=== PATIENT | female | born 1970 | race Caucasian/White ===

== ENCOUNTER 2019-09-08 11:31 | Emergency (ER) | payer SELFPAY ==
--- NOTE | 2019-09-08 11:49 | ER Document Report ---
ED Medical Screen (RME) - General Chief Complaint: Blood Pressure Problem Stated Complaint: BLOOD PRESSURE ISSUE Time Seen by Provider: 09/08/19 11:40 Primary Care Provider: CHANO ROB MD [Primary Care Provider] - Follow up as needed Information source: Patient Notes: Patient states that she was at an urgent care to get a physical for disability claim. Patient states that her blood pressure was up and they advised her to come here. Patient denies any chest pain, shortness of breath, back pain, urinary problems or headache. Patient does report changes in her vision although states that these have been gradual. Patient reports a known history of hypertension with 2 previous strokes. Patient states she does not have money or insurance to get on blood pressure medication. I have greeted and performed a rapid initial assessment of this patient. A comprehensive ED assessment and evaluation of the patient, analysis of test results and completion of the medical decision making process will be conducted by additional ED providers. TRAVEL OUTSIDE OF THE [place] IN LAST 30 DAYS: No - Related Data Allergies/Adverse Reactions: Sulfa (Sulfonamide Antibiotics) Allergy (Unknown, Verified 11/13/13 16:26) Past Medical History - Social History Chew tobacco use (# tins/day): No Frequency of alcohol use: None Drug Abuse: None - Past Medical History Cardiac Medical History: Reports: Hx Hypertension Neurological Medical History: Reports: Hx Cerebrovascular Accident - Immunizations Immunizations up to date: Yes Physical Exam - Vital signs Vitals: Temp Pulse Resp BP Pulse Ox 98.4 F 86 16 209/114 H 100 09/08/19 11:39 09/08/19 11:39 09/08/19 11:39 09/08/19 11:39 09/08/19 11:39 - Neurological Neuro grossly intact: Yes Cognition: Normal [place] Coma Scale Eye Opening: Spontaneous Stephen Coma Scale Verbal: Oriented [place] Coma Scale Motor: Obeys Commands [place] Coma Scale Total: 15 Course - Vital Signs Vital signs: Temp Pulse Resp BP Pulse Ox 98.4 F 86 16 209/114 H 100 09/08/19 11:39 09/08/19 11:39 09/08/19 11:39 09/08/19 11:39 09/08/19 11:39 Doctor's Discharge - Discharge Referrals: CHANO ROB MD [Primary Care Provider] - Follow up as needed
[2019-09-08] MEDS ORDERED: CLONIDINE HCL 0.1 MG TABLET PO ONE (12:17)
--- NOTE | 2019-09-08 12:24 | ER Document Report ---
ED General - General Chief Complaint: Blood Pressure Problem Stated Complaint: BLOOD PRESSURE ISSUE Time Seen by Provider: 09/08/19 11:40 Primary Care Provider: CHANO ROB MD [ACTIVE STAFF] - Follow up as needed Mode of Arrival: Ambulatory Information source: Patient, Relative, [facility] Records Notes: 48-year-old female with hypertension, previous CVA presents via private vehicle after she attempted to be examined by her disability physician who found her blood pressure to be significantly elevated. Patient does admit that she has not been taking her blood pressure medication due to cost. She denies any headache, visual changes, nausea, vomiting, chest pain, shortness of breath, difficulty with urination. TRAVEL OUTSIDE OF THE [place] IN LAST 30 DAYS: No - HPI Onset: Just prior to arrival Quality of pain: No pain Severity: None Pain Level: Denies Associated symptoms: denies: Chest pain, Nonproductive cough, Productive cough, Headache, Leg swelling, Nausea, Vomiting, Shortness of breath, Sweating, Weakness Exacerbated by: Denies Relieved by: Denies Similar symptoms previously: Yes Recently seen / treated by doctor: No - Related Data Allergies/Adverse Reactions: Sulfa (Sulfonamide Antibiotics) Allergy (Unknown, Verified 11/13/13 16:26) Past Medical History - General Information source: Patient - Social History Smoking Status: Current Every Day Smoker Cigarette use (# per day): Yes - 10 Chew tobacco use (# tins/day): No Smoking Education Provided: Yes - Smoking cessation counseling was provided for 4 minutes at the bedside Frequency of alcohol use: None Drug Abuse: None Lives with: Family Family History: Reviewed & Not Pertinent Patient has suicidal ideation: No Patient has homicidal ideation: No - Past Medical History Cardiac Medical History: Reports: Hx Hypertension Neurological Medical History: Reports: Hx Cerebrovascular Accident - Immunizations Immunizations up to date: Yes Review of Systems - Review of Systems Notes: REVIEW OF SYSTEMS: CONSTITUTIONAL : Denies fever, chills, or sweats. Denies recent illness. Denies weight loss, recent hospitalizations. EENT: Denies visual changes, eye pain. Denies sore throat, oral lesions, difficulty swallowing. CARDIOVASCULAR: Denies chest pain. Denies palpitations. Denies lower extremity edema. RESPIRATORY: Denies cough. Denies shortness of breath, wheezing. GASTROINTESTINAL: Denies abdominal pain or distention. Denies nausea, vomiting, or diarrhea. Denies blood in vomitus, stools, or per rectum. Denies black, tarry stools. Denies constipation. GENITOURINARY: Denies difficulty urinating, painful urination, frequency, blood in urine, or vaginal discharge. MUSCULOSKELETAL: Denies back or neck pain or stiffness. Denies joint pain or swelling. SKIN: Denies rash, lesions or sores. HEMATOLOGIC : Denies easy bruising or bleeding. LYMPHATIC: Denies swollen glands. NEUROLOGICAL: Denies confusion or altered mental status. Denies loss of consciousness. Denies dizziness or lightheadedness. Denies headache. Denies weakness or paralysis. Denies problems difficulty with ambulation, slurred speech. Denies sensory loss, numbness, or tingling. Denies seizures. PSYCHIATRIC: Denies anxiety or stress. Denies depression, suicidal ideation, or homicidal ideation. Denies visual or auditory hallucinations. Physical Exam - Vital signs Vitals: Temp Pulse Resp BP Pulse Ox 98.4 F 86 16 209/114 H 100 09/08/19 11:39 09/08/19 11:39 09/08/19 11:39 09/08/19 11:39 09/08/19 11:39 - Notes Notes: PHYSICAL EXAMINATION: GENERAL: Well-appearing, well-nourished and in no acute distress. HEAD: Atraumatic, normocephalic. EYES: Pupils equal round and reactive to light, extraocular movements intact, conjunctiva are normal. ENT: Nares patent, oropharynx clear without exudates. Moist mucous membranes. NECK: Normal range of motion, supple without lymphadenopathy LUNGS: Breath sounds clear to auscultation bilaterally and equal. No wheezes rales or rhonchi. HEART: Regular rate and rhythm without murmurs ABDOMEN: Soft, nontender, nondistended abdomen. No guarding, no rebound. No masses appreciated. Female : deferred Musculoskeletal: Normal range of motion, no pitting or edema. No cyanosis. NEUROLOGICAL: Cranial nerves grossly intact. Normal speech, normal gait. Normal sensory, motor exams PSYCH: Normal mood, normal affect. SKIN: Warm, Dry, normal turgor, no rashes or lesions noted. Course - Re-evaluation Re-evalutation: Temp Pulse Resp BP Pulse Ox 98.4 F 86 16 209/114 H 100 09/08/19 11:39 09/08/19 11:39 09/08/19 11:39 09/08/19 11:39 09/08/19 11:39 Presentation of asymptomatic hypertension. Patient denies any symptoms concerning for SAH, dissection, SC, or encephalopaty. Alert, oriented, and de nies any symptoms at time of assessment. Normal neuro exam. Per [facility] policy guidelines, will therefore not obtain any labs or EKG at this time and will not initiate new BP treatment. I have discussed critical importance of follow up with PCP within 1 week and increased risk of devastating stroke, heart attack, respiratory distress, and other life threatening complications if blood pressure is not reduced appropriately. Diet and exercise habits also discussed. Patient will be discharged with return precautions and follow-up recommendations. I did show the patient the [employer] hemanth which shows that her metoprolol is only $4 at [facility]. Patient states that she is able to afford this. Patient was evaluated and treated as appropriate for the patient's presenting symptoms and complaint, with consideration of any critical or life threatening conditions that may be associated with their obtained history and exam as noted above. All results were discussed with patient and her who is at the bedside patient provided the opportunity to ask questions, and express concerns. Patient was educated on treatments based on their presumed diagnosis as noted above. At this time we will discharge the patient with return precautions and follow-up recommendations. Verbal discharge instructions given a the bedside. Medication warnings reviewed. Patient is in agreement with this plan and has ve rbalized understanding of return precautions. After careful consideration I feel that that patient can be safely discharged from the emergency department, they were advised to followup with a primary care physician in 2-3 days. Dictation on this chart was performed using voice recognition software and may result in unintended grammatical, spelling, syntax or errors. - Vital Signs Vital signs: Temp Pulse Resp BP Pulse Ox 98.4 F 86 16 209/114 H 100 09/08/19 11:39 09/08/19 11:39 09/08/19 11:39 09/08/19 11:39 09/08/19 11:39 Discharge - Discharge Clinical Impression: Asymptomatic hypertension, Noncompliance with medication regimen Condition: Good Disposition: HOME, SELF-CARE Instructions: High Blood Pressure ([facility]) Additional Instructions: Regarding Blood Pressure: Your blood pressure was noted to be greater than 120/80 at least once in the emergency room today. It is recommended that you follow-up with her primary care physician in the next week for repeat blood pressure check. The Centers for Medicare and Medicaid Services has specific recommendations regarding a person's blood pressure. There are several lifestyle modifications that are recommended in order to help lower your blood pressure. These include: Quitting smoking if you smoke. Reducing the amount of sodium in your diet. Getting regular exercise Limiting alcohol to no more than 2 drinks a day for men and one drink a day for women. Eating a healthy diet, including more fruits and vegetables, low fat dairy products, less saturated and total fat. Losing weight if you are overweight. FOLLOW-UP: Call your doctor's office and let them know your blood pressure was elevated and you were advised to get your blood pressure checked in the above time-line. If you are unable to get into your doctor's office in this time period, you can follow-up with a new physician (I have left the numbers below for a few primary care doctors affiliated with this [facility]) or return to the ER. PRIMARY CARE PHYSICIANS: Dr. Nancy Law [address], [place] [phone] Dr Benitez Address: [address] , [place] [address] Dr Barreto Address: [address] [place] [address] [place] [address] Prescriptions: Metoprolol Tartrate [Lopressor 25 mg Tablet] 25 mg PO DAILY #30 tab Forms: Elevated Blood Pressure Referrals: CHANO ROB MD [ACTIVE STAFF] - Follow up as needed
[2019-09-08 12:59] VITALS: BP 169/98
== END 2019-09-08 13:00 | disposition home or self-care (01) ==
LOC: ER 11:31
DX: I10 Essential (primary) hypertension (principal); Z91.14 Patient's other noncompliance with medication regimen; Z79.899 Other long term (current) drug therapy; F17.210 Nicotine dependence, cigarettes, uncomplicated
CPT/HCPCS: 99283; 99406

== ENCOUNTER → 2019-09-30 | Outpatient (CLI) | payer SELFPAY ==
[2019-09-30 19:41] LABS: APPEARANCE,URINE CLOUDY; BILIRUBIN,URINE NEGATIVE (NEGATIVE); COLOR,URINE YELLOW; GLUCOSE, URINE NEGATIVE (NEGATIVE); KETONES,URINE NEGATIVE (NEGATIVE); LEUKOCYTE ESTERASE,URINE MODERATE (NEGATIVE); NITRITE,URINE POSITIVE (NEGATIVE); PROTEIN,URINE NEGATIVE (NEGATIVE); UROBILINOGEN,URINE NEGATIVE mg/dL (<2.0)
== END ==
LOC: LAB 19:28
PROVIDERS: ATTEND Nurse Practitioner Family
DX: R10.9 Unspecified abdominal pain (principal)
CPT/HCPCS: 81001; 87086; 87088; 87186

== ENCOUNTER 2019-10-19 01:23 | Emergency (ER) | payer SELFPAY ==
[2019-10-19 02:05] LABS: ABSOLUTE BASOPHILS # (AUTO) 0.1 10^3/uL (0.0-0.2); ABSOLUTE EOSINOPHILS # (AUTO) 0.1 10^3/uL (0.0-0.6); ABSOLUTE LYMPHOCYTES (AUTO) 1.9 10^3/uL (0.5-4.7); ABSOLUTE MONOCYTES (AUTO) 1.2 10^3/uL (0.1-1.4); ABSOLUTE NEUT (AUTO) 16.1 10^3/uL (1.7-8.2); BASOPHILS % (AUTO) 0.4 % (0-2); EOSINOPHILS % (AUTO) 0.3 % (0-6); HEMATOCRIT 46.3 % (36.0-47.0); HEMOGLOBIN 15.7 g/dL (12.0-15.5); LYMPHOCYTES % (AUTO) 9.7 % (13-45); MEAN CORPUSCULAR HEMOGLOBIN 31.9 pg (27.0-33.4); MEAN CORPUSCULAR HGB CONC 33.9 g/dL (32.0-36.0); MEAN CORPUSCULAR VOLUME 94 fl (80-97); MONOCYTES % (AUTO) 6.1 % (3-13); PLATELET COUNT 225 10^3/uL (150-450); RED BLOOD COUNT 4.93 10^6/uL (3.72-5.28); RED CELL DISTRIBUTION WIDTH 13.7 % (11.5-14.0); SEGMENTED NEUTROPHILS % (AUTO) 83.5 % (42-78); TOTAL CELLS COUNTED % (AUTO) 100 %; WHITE BLOOD COUNT 19.3 10^3/uL (4.0-10.5)
[2019-10-19 02:33] LABS: ANION GAP 12 (5-19); BLOOD UREA NITROGEN 10 mg/dL (7-20); CALCIUM 9.9 mg/dL (8.4-10.2); CARBON DIOXIDE 22 mmol/L (22-30); CHLORIDE 109 mmol/L (98-107); GLUCOSE 123 mg/dL (75-110); POTASSIUM 4.2 mmol/L (3.6-5.0)
[2019-10-19] MEDS ORDERED: MORPHINE SULFATE 10 MG/ML INJ IV ONE (05:12)
[2019-10-19] MEDS ORDERED: ONDANSETRON HCL INJ/PF 4 MG/2 ML SDV IV ONE (05:12)
[2019-10-19] MEDS ORDERED: NORMAL SALINE 1000 ML 1,000 ML IV ONE (05:12)
--- NOTE | 2019-10-19 05:14 | ER Document Report ---
ED GI/ - General TRAVEL OUTSIDE OF THE [place] IN LAST 30 DAYS: No - Related Data Home Medications: asa 325. aricept. unk name BP med daily <ALLY ARAUJO - Last Filed: 10/19/19 07:56> <DANIELA GRACIA - Last Filed: 10/19/19 19:22> - General Chief Complaint: Flank Pain Stated Complaint: LEFT SIDE PAIN/VOMITING Time Seen by Provider: 10/19/19 05:03 Notes: Patient is a 48-year-old female that comes to the emergency department for chief complaint of severe pain that started suddenly at 9:30 PM, she states pain is in her left mid to lower abdomen and radiates to her back. She states the pain started suddenly and she vomited. She denies dysuria, hematuria, fever/chills, or any other locations of pain. She states she has a remote history of a kidney stone removal but not within many years. She denies any abdominal surgeries. 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 Denies medical history otherwise. Significant other at bedside. (ALLY ARAUJO) - Related Data Allergies/Adverse Reactions: Sulfa (Sulfonamide Antibiotics) Allergy (Unknown, Verified 11/13/13 16:26) Past Medical History - General Information source: Patient - Social History Smoking Status: Current Every Day Smoker Chew tobacco use (# tins/day): No Frequency of alcohol use: None Drug Abuse: None Lives with: Spouse/Significant other Family History: Reviewed & Not Pertinent Patient has suicidal ideation: No Patient has homicidal ideation: No - Past Medical History Cardiac Medical History: Reports: Hx Hypertension Neurological Medical History: Reports: Hx Cerebrovascular Accident - Immunizations Immunizations up to date: Yes <ALLY ARAUJO - Last Filed: 10/19/19 07:56> Review of Systems - Review of Systems Constitutional: No symptoms reported EENT: No symptoms reported Cardiovascular: No symptoms reported Respiratory: No symptoms reported Gastrointestinal: See HPI Genitourinary: See HPI Female Genitourinary: No symptoms reported Musculoskeletal: No symptoms reported Skin: No symptoms reported Hematologic/Lymphatic: No symptoms reported Neurological/Psychological: No symptoms reported <ALLY ARAUJO - Last Filed: 10/19/19 07:56> Physical Exam <ALLY ARAUJO - Last Filed: 10/19/19 07:56> - Vital signs Vitals: Temp Pulse Resp BP Pulse Ox 97.4 F 81 20 160/120 H 96 10/19/19 01:28 10/19/19 01:28 10/19/19 01:28 10/19/19 01:28 10/19/19 01:28 - Notes Notes: GENERAL: Alert and interactive but restless and appears uncomfortable HEAD: Normocephalic, atraumatic. EYES: Pupils equal, round, and reactive to light. Extraocular movements intact. ENT: Oral mucosa moist, tongue midline. Oropharynx unremarkable. Airway patent. NECK: Full range of motion. Supple. Trachea midline. LUNGS: Clear to auscultation bilaterally, no wheezes, rales, or rhonchi. No respiratory distress. HEART: Regular rate and rhythm. No murmur ABDOMEN: Pain over the left mid to left lower abdome, no severe tenderness, no guarding. Right side unremarkable. Bowel sounds present throughout. GENITOURINARY: Deferred EXTREMITIES: Moves all 4 extremities spontaneously. No edema, normal radial and dorsalis pedis pulses bilaterally. No cyanosis. BACK: There is left CVA tenderness, right side unremarkable. No cervical, thoracic, lumbar midline tenderness. No saddle anesthesia, normal distal neurovascular exam. Moves all extremities in full range of motion. NEUROLOGICAL: Alert and oriented x3. Normal speech. Cranial nerves II through XII grossly intact. PSYCH: Normal affect, normal mood. SKIN: Warm, dry, normal turgor. No rashes or lesions noted. (ALLY ARAUJO) Course - Laboratory Result Diagrams: 10/19/19 01:30 10/19/19 01:30 <ALLY ARAUJO - Last Filed: 10/19/19 07:56> - Laboratory Result Diagrams: 10/19/19 01:30 10/19/19 01:30 <DANIELA GRACIA - Last Filed: 10/19/19 19:22> - Re-evaluation Re-evalutation: Patient obviously uncomfortable, has left-sided CVA tenderness, left-sided abdominal tenderness, history of stones. Because of her obvious pain and only very remote history of stones I discussed with patient and decision was made to perform CAT scan. CBC shows leukocytosis of greater than 19,000, chemistry nonspecific, renal functioning normal. Urine shows positive nitrates, white blood cells, red blood cells, however this was contaminated with large amount of squamous epithelials. Patient has been given IV fluids, straight cath will be performed to be more specific. Patient states agreement. CT showing left-sided hydronephrosis, mid left ureteral stone at 8 mm. 6 mm left-sided nephrolithiasis. On reevaluation patient is uncomfortable again, remedicated. 10/19/19 07:55 (LALY ARAUJO) 10/19/19 10:00 Patient afebrile at this time. Patient's pain manageable at this time. Offered patient transfer to a facility that has urology services on. Patient declines at this time. Patient feels as though she can manage her symptoms at home until she can follow-up with a urologist on an outpatient basis. Discussed with patient worsening signs or symptoms that she should return immediately for such as worsening pain uncontrolled with her medicine, fever, nausea vomiting, diffi culty voiding or any other concerning symptoms. Patient and spouse verbalized understanding of instructions and is agreeable with plan of care. (DANIELA GRACIA) - Vital Signs Vital signs: Temp Pulse Resp BP Pulse Ox 98.4 F 106 H 16 128/82 H 94 10/19/19 10:08 10/19/19 10:08 10/19/19 10:08 10/19/19 10:08 10/19/19 10:08 - Laboratory Laboratory results interpreted by me: 10/19/19 10/19/19 10/19/19 01:30 01:30 05:10 WBC 19.3 H Hgb 15.7 H Lymph % (Auto) 9.7 L Absolute Neuts (auto) 16.1 H Seg Neutrophils % 83.5 H Chloride 109 H Glucose 123 H Urine Protein 30 H Urine Blood MODERATE H Urine Nitrite POSITIVE H Ur Leukocyte Esterase MODERATE H 10/19/19 07:00 WBC Hgb Lymph % (Auto) Absolute Neuts (auto) Seg Neutrophils % Chloride Glucose Urine Protein Urine Blood SMALL H Urine Nitrite Ur Leukocyte Esterase SMALL H Discharge <ALLY ARAUJO - Last Filed: 10/19/19 07:56> <DANIELA GRACIA - Last Filed: 10/19/19 19:22> - Discharge Clinical Impression: Ureterolithiasis, Flank pain Vomiting Qualifiers: Vomiting type: unspecified Vomiting Intractability: non-intractable Nausea presence: with nausea Qualified Code(s): R11.2 - Nausea with vomiting, unspec ified Abdominal pain Qualifiers: Abdominal location: generalized Qualified Code(s): R10.84 - Generalized abdominal pain Condition: Stable Disposition: HOME, SELF-CARE Additional Instructions: You are passing a 8 mm kidney stone on the left side. There is a very good chance you will not be able to pass this. I spoke with Dr. Sweeney, urology at [facility] and also in an office here in [place], please call the listed referral below today for close follow-up and additional management. Take the provided pain and nausea medications, take the Keflex antibiotics, drain plenty of fluids and rest. Return if you worsen including vomiting that is not controlled, severe worsening pain, fever/chills, or any other concerning symptoms. [facility] [address] [place], [place] [id number] [facility] [address] [place], [place] [id number] Prescriptions: Oxycodone HCl/Acetaminophen [Percocet 5-325 mg Tablet] 1 - 2 tab PO Q6HP PRN #20 tablet PRN Reason: Cephalexin Monohydrate [Keflex 500 mg Capsule] 500 mg PO BID 7 Days #14 capsule Promethazine HCl [Phenergan 25 mg Tablet] 25 mg PO Q6H PRN #20 tablet PRN Reason: Forms: Return to Work
[2019-10-19 05:49] LABS: APPEARANCE,URINE CLOUDY; BILIRUBIN,URINE NEGATIVE (NEGATIVE); COLOR,URINE YELLOW; GLUCOSE, URINE NEGATIVE (NEGATIVE); KETONES,URINE NEGATIVE (NEGATIVE); LEUKOCYTE ESTERASE,URINE MODERATE (NEGATIVE); NITRITE,URINE POSITIVE (NEGATIVE); PROTEIN,URINE 30 mg/dL (NEGATIVE); UROBILINOGEN,URINE NEGATIVE mg/dL (<2.0)
[2019-10-19 05:49] LABS: ALBUMIN 4.7 g/dL (3.5-5.0); ALKALINE PHOSPHATASE 115 U/L (38-126); ASPARTATE AMINO TRANSFERASE 24 U/L (14-36); BILIRUBIN,DIRECT 0.1 mg/dL (0.0-0.4); BILIRUBIN,TOTAL 0.2 mg/dL (0.2-1.3); TOTAL PROTEIN 7.6 g/dL (6.3-8.2)
[2019-10-19] MEDS ORDERED: CEFTRIAXONE 1 GM/D5W RTU 1 GM/50 ML RTUPB IV ONE (05:57)
--- NOTE | 2019-10-19 06:38 | RADIOLOGY REPORT (SQ) ---
EXAM DESCRIPTION: CT ABDOMEN PELVIS WITHOUT IV CONTRAST COMPLETED DATE/TME: 10/19/2019 05:10 CLINICAL HISTORY: 48 years Female, severe left abd/flank pain Comparison: None. Technique: No contrast. Coronal and sagittal reformat. This exam was performed according to our departmental dose-optimization program, which includes automated exposure control, adjustment of the mA and/or kV according to patient size and/or use of iterative reconstruction technique.[facility]: Dose Right [facility]: CareDose [facility]: Dose Right [facility]: Teradose 4D [facility]: STEMpowerkids LIMITATIONS: None Findings: 0.8 x 0.5 x 0.5 cm left mid ureteral stone at the L4 level with moderate left hydronephrosis-hydroureter, moderate left renal engorgement, and moderate left perinephric fat stranding. Additional 0.6 cm left renal stone. Atherosclerosis. Anterolisthesis at the cecum. Small residual colonic contrast. Low attenuation diffuse bowel wall thickening suggestive of prior infectious/inflammatory insult. Degenerative disc disease. Atelectasis/scar. No ascites. No pneumoperitoneum. No evidence of appendicitis. Appendix not definitively discerned/appendectomy. No gross evidence of gallbladder inflammation, hepatobiliary obstruction, or portal vein defect. No bowel obstruction. No evidence of abdominal aortic aneurysm. No gross evidence of thecal sac/cord or nerve root compression. Unenhanced lower thorax, abdominopelvic structures, and musculoskeleton appear otherwise grossly unremarkable. Impression: 0.8 cm left mid ureteral stone with moderate grade obstruction. Additional 0.6 cm left renal stone.
[2019-10-19] MEDS ORDERED: HYDROMORPHONE HCL INJ/PF 2 MG/ML AMPULE IV ONE ×2 (06:47→08:29)
[2019-10-19 07:45] LABS: APPEARANCE,URINE CLEAR; BILIRUBIN,URINE NEGATIVE (NEGATIVE); COLOR,URINE YELLOW; GLUCOSE, URINE NEGATIVE (NEGATIVE); KETONES,URINE NEGATIVE (NEGATIVE); LEUKOCYTE ESTERASE,URINE SMALL (NEGATIVE); NITRITE,URINE NEGATIVE (NEGATIVE); PROTEIN,URINE NEGATIVE (NEGATIVE); URINE SPECIFIC GRAVITY 1.013; UROBILINOGEN,URINE NEGATIVE mg/dL (<2.0)
[2019-10-19] MEDS ORDERED: HYDROCODONE/ACETAMINOPHEN 5-325 MG (6 TAB/ER DISP) PO PRN (07:58)
[2019-10-19] MEDS ORDERED: ONDANSETRON ODT 4 MG TAB (6 TAB/ER DISP) PO PRN (07:59)
[2019-10-19] MEDS ORDERED: KETOROLAC TROMETHAMINE INJ/PF 30 MG/1 ML SDV IV ONE (08:07)
[2019-10-19 09:45] VITALS: BP 128/82
== END 2019-10-19 10:00 | disposition home or self-care (01) ==
LOC: ER 01:23
DX: N20.1 Calculus of ureter (principal); R10.84 Generalized abdominal pain; R11.2 Nausea with vomiting, unspecified; F17.200 Nicotine dependence, unspecified, uncomplicated; I10 Essential (primary) hypertension; Z88.2 Allergy status to sulfonamides; Z87.442 Personal history of urinary calculi
CPT/HCPCS: 96376; 99284; 96375; 96365; 36415; 87086; 83690; 85025; 81025; 87088; 80076; 80048; 81001; 87186; 74176; J1885; J2270; J1170; J2405; J7030; J0696